=== PATIENT | male | born 2000 | race Caucasian/White ===

== ENCOUNTER 2018-08-14 11:14 | Inpatient (IN) | payer OTHER ==
[2018-08-14 12:02] LABS: HEMATOCRIT 45.4 % (42.0-52.0); HEMOGLOBIN 15.8 g/dl (13.5-17.5); MEAN CORPUSCULAR HEMOGLOBIN 30.4 pg (27.0-33.0); MEAN CORPUSCULAR HGB CONC 34.8 g/dl (32.0-36.5); MEAN CORPUSCULAR VOLUME 87.5 fl (80.0-96.0); PLATELET COUNT, AUTOMATED 190 10^3/uL (150-450); RED BLOOD COUNT 5.19 10^6/uL (4.30-6.10); WHITE BLOOD COUNT 7.2 10^3/uL (4.0-10.0)
[2018-08-14 12:20] LABS: AMPHETAMINES LEVEL URINE NEGATIVE (NEGATIVE); BARBITURATES URINE NEGATIVE (NEGATIVE); BENZODIAZEPINES URINE NEGATIVE (NEGATIVE); CANNABINOIDS URINE POSITIVE (NEGATIVE); COCAINE METABOLITE URINE NEGATIVE (NEGATIVE); METHADONE URINE NEGATIVE (NEGATIVE); OPIATES URINE NEGATIVE (NEGATIVE); PHENCYCLIDINE URINE NEGATIVE (NEGATIVE)
[2018-08-14 12:48] LABS: ACETAMINOPHEN LEVEL < 2.0 UG/ML (10.0-30.0); ALBUMIN/GLOBULIN RATIO 1.25 (1.00-1.93); ALKALINE PHOSPHATASE 81 U/L (45-117); ALT/SGPT 36 U/L (12-78); ANION GAP 6 MEQ/L (8-16); AST/SGOT 29 U/L (7-37); BILIRUBIN,DIRECT 0.2 MG/DL (0.0-0.2); BILIRUBIN,TOTAL 0.8 MG/DL (0.2-1.0); BLOOD UREA NITROGEN 15 MG/DL (7-18); CALCIUM LEVEL 8.6 MG/DL (8.5-10.1); CARBON DIOXIDE LEVEL 28 MEQ/L (21-32); CHLORIDE LEVEL 105 MEQ/L (98-107); CREATININE FOR GFR 1.09 MG/DL (0.70-1.30); ETHYL ALCOHOL (ETHANOL) < 0.003 % (0.000-0.010); GLUCOSE, FASTING 72 MG/DL (70-100); POTASSIUM SERUM 4.1 MEQ/L (3.5-5.1); SALICYLATE LEVEL < 1.7 MG/DL (5.0-30.0); SODIUM LEVEL 139 MEQ/L (136-145); THYROID STIMULATING HORMONE 0.303 uIU/ML (0.463-3.98); TOTAL PROTEIN 7.2 GM/DL (6.4-8.2)
[2018-08-14] MEDS: guaiFENesin SYRUP 200 MG/10 ML UDC PO (21:45)
[2018-08-15] MEDS: BENZONATATE 100 MG CAP PO (10:45)
[2018-08-15] MEDS ORDERED: MOM 30ML SUSPENSION UDC PO (12:30)
[2018-08-15] MEDS ORDERED: MAALOX 30 ML SUSP *UDC PO (12:30)
[2018-08-15] MEDS ORDERED: traZODone 50 MG TAB PO (12:30)
[2018-08-15] MEDS ORDERED: SODIUM CHLORIDE NASAL 0.65% SPRAY BTL (OCEAN) (13:45)
[2018-08-15] MEDS: OLANZapine ORAL DISINTEGRATING TAB 5MG PO (14:46)
[2018-08-15] MEDS ORDERED: HALOPERIDOL 5 MG/ML VIAL (J1630) IM (15:56)
[2018-08-15] MEDS ORDERED: diphenhydrAMINE INJ 50MG/ML VIAL (J1200) IM (15:56)
[2018-08-15] MEDS ORDERED: LORazepam 2 MG/ML VIAL (J2060) IM (15:56)
[2018-08-15] MEDS: LORazepam 2 MG TAB PO (16:04)
[2018-08-15] MEDS: HALOPERIDOL 10 MG TAB PO (16:05)
[2018-08-15] MEDS: diphenhydrAMINE 50 MG CAP PO (16:05)
[2018-08-15] MEDS: AUGMENTIN 875 MG TAB PO ×2 (16:08→21:59)
[2018-08-15] MEDS: ERYTHROMYCIN OPHTH OINT OU ×2 (16:08→21:00)
[2018-08-15] MEDS: ACETAMINOPHEN TAB 650MG DOSE (2X325MG) PO (16:13)
[2018-08-15] MEDS: NICOTINE 21MG/24HR 1 EA TRANSDERMAL TD (17:15)
[2018-08-15] MEDS: QUEtiapine FUMARATE 25 MG TAB PO (21:59)
[2018-08-15] MEDS: guaiFENesin ER 600 MG TAB PO (21:59)
[2018-08-16 08:03] LABS: THYROID STIMULATING HORMONE 0.946 uIU/ML (0.463-3.98)
[2018-08-16 08:03] LABS: FREE T4 1.35 NG/DL (0.78-1.33)
[2018-08-16] MEDS: NICOTINE 21MG/24HR 1 EA TRANSDERMAL TD (08:31)
[2018-08-16] MEDS: guaiFENesin ER 600 MG TAB PO (08:31)
[2018-08-16] MEDS: AUGMENTIN 875 MG TAB PO (08:31)
[2018-08-16] MEDS: ERYTHROMYCIN OPHTH OINT OU (08:31)
[2018-08-16] MEDS: QUEtiapine FUMARATE 25 MG TAB PO (08:31)
== END 2018-08-16 13:45 | disposition home or self-care (01) | DRG 883 ==
LOC: M ED INP 08-15 12:23 → M PSY 08-15 13:20 → M ED 11:14
PROVIDERS: Psychiatry & Neurology Psychiatry
DX: F60.3 Borderline personality disorder (principal); H10.33 Unspecified acute conjunctivitis, bilateral; F60.2 Antisocial personality disorder; F17.210 Nicotine dependence, cigarettes, uncomplicated; J32.0 Chronic maxillary sinusitis; F39 Unspecified mood [affective] disorder; Z79.899 Other long term (current) drug therapy

== ENCOUNTER 2018-08-18 08:22 | Emergency (ER) | payer OTHER | END 2018-08-18 09:19 | disposition home or self-care (01) | LOC: M ED 08:22 | DX: H10.33 Unspecified acute conjunctivitis, bilateral (principal); B34.9 Viral infection, unspecified; F17.210 Nicotine dependence, cigarettes, uncomplicated; S00.522A Blister (nonthermal) of oral cavity, initial encounter; X58.XXXA Exposure to other specified factors, initial encounter; Y92.89 Other specified places as the place of occurrence of the external cause; G47.00 Insomnia, unspecified; Z79.899 Other long term (current) drug therapy; Z79.2 Long term (current) use of antibiotics; Z88.0 Allergy status to penicillin | CPT/HCPCS: 99283 ==